=== PATIENT | female | born 1945 ===

== ENCOUNTER 2017-10-08 19:43 | Inpatient (IN) | payer OTHER ==
[~2017-10-08] VITALS: Ht 157.5 cm; Wt 45.4 kg
[2017-10-08] MEDS ORDERED: SYNTHROID75 MCG (20:00)
[2017-10-08] MEDS ORDERED: NEURONTIN300 MG (20:00)
[2017-10-08] MEDS ORDERED: XARELTO10 MG (20:00)
[2017-10-08] MEDS ORDERED: NAMENDA10 MG (20:00)
[2017-10-08] MEDS ORDERED: METFORMIN HCL500 MG (20:00)
[2017-10-08] MEDS ORDERED: DIOVAN160 M1 (20:01)
[2017-10-08] MEDS ORDERED: ARICEPT10 MG (20:01)
[2017-10-09] MEDS ORDERED: LEVAQUIN750 MG PO (10:43)
[2017-10-14] MEDS ORDERED: DIOVAN160 M1 PO (14:21)
[2017-10-14] MEDS ORDERED: NAMENDA10 MG PO (14:21)
[2017-10-14] MEDS ORDERED: HumaLOG 100 UNIT/1 M SUBCUTANEO (14:21)
[2017-10-14] MEDS ORDERED: Lantus 1000 UNITS/10 SUBCUTANEO (14:21)
[2017-10-14] MEDS ORDERED: ARICEPT10 MG PO (14:21)
[2017-10-14] MEDS ORDERED: SYNTHROID88 MCG PO (14:21)
[2017-10-14] MEDS ORDERED: XARELTO10 MG PO (14:21)
[2017-10-14] MEDS ORDERED: KEFLEX500 MG PO (14:23)
[2017-10-14] MEDS ORDERED: JANUMET 50-1,01 EACH PO (14:29)
[2017-10-14] MEDS ORDERED: GLIMEPIRIDE2 MG PO (14:29)
== END 2017-10-14 14:38 | disposition home or self-care (01) | DRG 65 ==
LOC: ER 19:43 → EDBD 20:22 → ER 20:22 → MEDI 10-09 11:57
PROC: B246ZZZ Ultrasonography of Right and Left Heart (ICD-10-PCS; principal; 2017-10-09)
PROC: B345ZZZ Ultrasonography of Bilateral Common Carotid Arteries (ICD-10-PCS; 2017-10-09)
PROC: B348ZZZ Ultrasonography of Bilateral Internal Carotid Arteries (ICD-10-PCS; 2017-10-09)
PROC: B030ZZZ Magnetic Resonance Imaging (MRI) of Brain (ICD-10-PCS; 2017-10-09)
DX: I63.49 Cerebral infarction due to embolism of other cerebral artery (principal); G81.94 Hemiplegia, unspecified affecting left nondominant side; N39.0 Urinary tract infection, site not specified; E11.65 Type 2 diabetes mellitus with hyperglycemia; I10 Essential (primary) hypertension; E03.8 Other specified hypothyroidism; Z86.73 Personal history of transient ischemic attack (TIA), and cerebral infarction without residual deficits; F03.90 Unspecified dementia, unspecified severity, without behavioral disturbance, psychotic disturbance, mood disturbance, and anxiety; D47.3 Essential (hemorrhagic) thrombocythemia; B95.61 Methicillin susceptible Staphylococcus aureus infection as the cause of diseases classified elsewhere
CPT/HCPCS: 70551